=== PATIENT | female | born 1975 | race Caucasian/White ===

== ENCOUNTER 2018-09-01 20:52 | Emergency (ER) | payer OTHER ==
[~2018-09-01] VITALS: Ht 157.5 cm; Wt 59.9 kg
--- OUTSIDE RECORDS SUMMARY | 2018-09-01 20:55 | XMS REPORT ---
Author Author [facility] Address Unknown Phone Unavailable Care Team Providers Care Quality Control Representative Name Role Phone GABY TALBOT Unavailable Unavailable Problems This patient has no known problems. Allergies, Adverse Reactions, Alerts This patient has no known allergies or adverse reactions. Medications This patient has no known medications. Results Test Description Test Time Test Comments Text Results Atomic Results Result Comments TISSUE EXAM 2018-07-11 09:09:00 Surgical Pathology Report Case: [id number] Authorizing Provider: Bindu Talbot MD Collected: 07/09/2018 0416 Ord ering Location: [facility] Women's Services Received: 07/09/2018 0735 Pathologist: Yaya Briceno MD Specimen: Placenta PLACENTA, IUFD: UMBILICAL CORD - - TRIVASCULAR UMBILICAL CORD - NEGATIVE FOR ACUTE INFLAMMATION MEMBRANES - - NEGATIVE FOR ACUTE INFLAMMATION PLACENTAL DISC - - PLACENTAL WEIGHT: (MEAN EXPECTED WEIGHT - 236 GMS - SECOND TRIMESTER VILLI WITH DEGENERATIVE CHANGES CONSISTENT WITH IUFD AND IRREGULAR VILLOUS MORPHOLOGY - NO GESTATIONAL TROPHOBLASTIC DISEASE IDENTIFIEDNote: Placental weight reference: Diagnostic Pathology:Placenta. Gale Perales E. DePaepe, M. Section IV. 1-2. Elsevier. 2015. Signing Pathologist Direct Phone Line: [phone] signed by Yaya Briceno MD on 07/11/2018 at 9:09 [id number], para 0, 4, gestation 22 weeks on an male with birthweight of 320 gm. scores of 0 and 0. The procedure is not listed. Placenta The instrument, paperwork, container and cassettes all read [id number]. Received in a container of formalin labeled with the patient's name (Raoul), and medical record number. Specimen A: Received in formalin labeled as "placenta" is a 236 gm, 13.6 x 12.0 x 2.5 cm disrupted placenta with an attached segment of umbilical cord which measures 18.0 x 0.5 x 0.5 cm. There is a clip at one end. The vessels are small but appears to be a trivascular configuration. Also present are ordoñez-carrasco semitransparent membranes with a marginal insertion. The surface is ordoñez-carrasco and smooth. The vessels are small but appear to branch in the usual manner. Also present in the container is approximately 20 ml of blood clot. The maternal surface is disrupted with area of adherent blood clot. Sectioning reveals no areas of infarct. Code sections: A1, membrane roll; A2, section of umbilical cord; A3 and A4, sections of maternal surface; A5, section of surface. JF/pl HEMOGLOBIN AND HEMATOCRIT 2018-07-09 12:20:00 HEMOGLOBIN (BEAKER) (test yvjp=507) 7.7 GM/DL 12.0-15.5 HEMATOCRIT (BEAKER) (test wyqv=698) 22.2 % 36.0-46.0 CBC W/PLT COUNT & AUTO [id number] 07:52:00* Test Item Value Reference Range Comments WHITE BLOOD CELL COUNT (BEAKER) (test gcsq=270) 11.1 K/ L 4.0-10.0 RED BLOOD CELL COUNT (BEAKER) (test xerq=998) 2.32 M/ L 4.00-5.00 HEMOGLOBIN (BEAKER) (test agbj=689) 7.4 GM/DL 12.0-15.5 HEMATOCRIT (BEAKER) (test irbt=212) 21.4 % 36.0-46.0 MEAN CORPUSCULAR VOLUME (BEAKER) (test fega=205) 92.2 fL 82.0-99.0 MEAN CORPUSCULAR HEMOGLOBIN (BEAKER) (test amqc=597) 31.9 pg 27.0-33.0 MEAN CORPUSCULAR HEMOGLOBIN CONC (BEAKER) (test ooyu=558) 34.6 GM/DL 32.0-36.0 RED CELL DISTRIBUTION WIDTH (BEAKER) (test gvqa=184) 12.4 % 12.0-15.0 PLATELET COUNT (BEAKER) (test dwyo=525) 170 K/CU MM 150-430 MEAN PLATELET VOLUME (BEAKER) (test fadm=315) 9.9 fL 6.0-11.5 MPV-Approximately 20% positive bias due to method change. NUCLEATED RED BLOOD CELLS (BEAKER) (test kket=425) 0 /100 WBC 0-0 NEUTROPHILS RELATIVE PERCENT (BEAKER) (test xebh=543) 69 % LYMPHOCYTES RELATIVE PERCENT (BEAKER) (test famw=879) 20 % MONOCYTES RELATIVE PERCENT (BEAKER) (test cmck=891) 9 % EOSINOPHILS RELATIVE PERCENT (BEAKER) (test haos=066) 2 % BASOPHILS RELATIVE PERCENT (BEAKER) (test eifo=070) 0 % NEUTROPHILS ABSOLUTE COUNT (BEAKER) (test yzbm=837) 7.61 K/ L 1.80-8.00 LYMPHOCYTES ABSOLUTE COUNT (BEAKER) (test rpgk=330) 2.16 K/ L 1.48-4.50 MONOCYTES ABSOLUTE COUNT (BEAKER) (test ohdm=550) 1.01 K/ L 0.00-1.30 EOSINOPHILS ABSOLUTE COUNT (BEAKER) (test okff=277) 0.24 K/ L 0.00-0.50 BASOPHILS ABSOLUTE COUNT (BEAKER) (test jmxr=697) 0.01 K/ L 0.00-0.20 IMMATURE GRANULOCYTES-RELATIVE PERCENT (BEAKER) (test cxjd=8902) 1 % 0-0 TYPE AND SCREEN, [id number] 21:38:00* Test Item Value Reference Range Comments ABO/RH AUTOMATED (BEAKER) (test hlzs=6693) B positive AB SCREEN (BEAKER) (test glzu=099) Negative HEPATITIS B SURFACE [id number] 21:02:00* Test Item Value Reference Range Comments HEPATITIS B SURFACE ANTIGEN (2) (BEAKER) (test uhpc=3458) Nonreactive Nonreactive CBC W/PLT COUNT & AUTO [id number] 20:48:00* Test Item Value Reference Range Comments WHITE BLOOD CELL COUNT (BEAKER) (test bfwr=374) 10.0 K/ L 4.0-10.0 RED BLOOD CELL COUNT (BEAKER) (test uawk=045) 2.95 M/ L 4.00-5.00 HEMOGLOBIN (BEAKER) (test wqnr=587) 9.4 GM/DL 12.0-15.5 Discordant result compared to previous result: clinical correlation required. HEMATOCRIT (BEAKER) (test akiv=632) 27.3 % 36.0-46.0 MEAN CORPUSCULAR VOLUME (BEAKER) (test ryuo=196) 92.5 fL 82.0-99.0 Discordant result compared to previous result: clinical correlation required. MEAN CORPUSCULAR HEMOGLOBIN (BEAKER) (test gwtm=273) 31.9 pg 27.0-33.0 MEAN CORPUSCULAR HEMOGLOBIN CONC (BEAKER) (test mdwz=097) 34.4 GM/DL 32.0-36.0 RED CELL DISTRIBUTION WIDTH (BEAKER) (test snei=376) 12.6 % 12.0-15.0 PLATELET COUNT (BEAKER) (test eyss=417) 214 K/CU MM 150-430 MEAN PLATELET VOLUME (BEAKER) (test bryb=938) 10.2 fL 6.0-11.5 MPV-Approximately 20% positive bias due to method change. NUCLEATED RED BLOOD CELLS (BEAKER) (test lxmj=178) 0 /100 WBC 0-0 NEUTROPHILS RELATIVE PERCENT (BEAKER) (test btcx=753) 66 % LYMPHOCYTES RELATIVE PERCENT (BEAKER) (test hrtt=465) 22 % MONOCYTES RELATIVE PERCENT (BEAKER) (test iiiu=931) 8 % EOSINOPHILS RELATIVE PERCENT (BEAKER) (test xdmb=553) 3 % BASOPHILS RELATIVE PERCENT (BEAKER) (test cugn=902) 0 % NEUTROPHILS ABSOLUTE COUNT (BEAKER) (test hdwu=722) 6.63 K/ L 1.80-8.00 LYMPHOCYTES ABSOLUTE COUNT (BEAKER) (test amoj=848) 2.19 K/ L 1.48-4.50 MONOCYTES ABSOLUTE COUNT (BEAKER) (test zxsd=514) 0.83 K/ L 0.00-1.30 EOSINOPHILS ABSOLUTE COUNT (BEAKER) (test tkwr=660) 0.28 K/ L 0.00-0.50 BASOPHILS ABSOLUTE COUNT (BEAKER) (test fhzp=418) 0.04 K/ L 0.00-0.20 IMMATURE GRANULOCYTES-RELATIVE PERCENT (BEAKER) (test zstg=1496) 0 % 0-0 CBC W/PLT COUNT & AUTO [id number] 20:23:00* Test Item Value Reference Range Comments WHITE BLOOD CELL COUNT (BEAKER) (test qely=525) 5.1 K/ L 4.0-10.0 RED BLOOD CELL COUNT (BEAKER) (test qzgc=770) 1.50 M/ L 4.00-5.00 HEMOGLOBIN (BEAKER) (test auab=928) 4.8 GM/DL 12.0-15.5 HEMATOCRIT (BEAKER) (test ycbr=412) 14.5 % 36.0-46.0 MEAN CORPUSCULAR VOLUME (BEAKER) (test vrji=595) 96.7 fL 82.0-99.0 MEAN CORPUSCULAR HEMOGLOBIN (BEAKER) (test adjf=391) 32.0 pg 27.0-33.0 MEAN CORPUSCULAR HEMOGLOBIN CONC (BEAKER) (test robb=353) 33.1 GM/DL 32.0-36.0 RED CELL DISTRIBUTION WIDTH (BEAKER) (test bjsg=777) 12.6 % 12.0-15.0 PLATELET COUNT (BEAKER) (test jmeb=569) 110 K/CU MM 150-430 MEAN PLATELET VOLUME (BEAKER) (test qufi=483) 10.1 fL 6.0-11.5 NUCLEATED RED BLOOD CELLS (BEAKER) (test xiks=428) 0 /100 WBC 0-0 NEUTROPHILS RELATIVE PERCENT (BEAKER) (test vcwq=378) 67 % LYMPHOCYTES RELATIVE PERCENT (BEAKER) (test osum=118) 21 % MONOCYTES RELATIVE PERCENT (BEAKER) (test xueq=869) 8 % EOSINOPHILS RELATIVE PERCENT (BEAKER) (test gjzn=888) 3 % BASOPHILS RELATIVE PERCENT (BEAKER) (test lwgl=898) 0 % NEUTROPHILS ABSOLUTE COUNT (BEAKER) (test yhuy=735) 3.45 K/ L 1.80-8.00 LYMPHOCYTES ABSOLUTE COUNT (BEAKER) (test kdbp=563) 1.08 K/ L 1.48-4.50 MONOCYTES ABSOLUTE COUNT (BEAKER) (test onug=716) 0.43 K/ L 0.00-1.30 EOSINOPHILS ABSOLUTE COUNT (BEAKER) (test xsuf=425) 0.14 K/ L 0.00-0.50 BASOPHILS ABSOLUTE COUNT (BEAKER) (test onye=143) 0.01 K/ L 0.00-0.20 IMMATURE GRANULOCYTES-RELATIVE PERCENT (BEAKER) (test ypag=6556) 0 % 0-0 HEPATITIS B SURFACE [id number] 06:40:00* Test Item Value Reference Range Comments HEPATITIS B SURFACE ANTIGEN (2) (BEAKER) (test uamv=9512) Nonreactive Nonreactive CBC W/PLT COUNT & AUTO [id number] 05:54:00* Test Item Value Reference Range Comments WHITE BLOOD CELL COUNT (BEAKER) (test pdly=343) 8.0 K/ L 4.0-10.0 RED BLOOD CELL COUNT (BEAKER) (test ivti=888) 2.90 M/ L 4.00-5.00 HEMOGLOBIN (BEAKER) (test yars=337) 9.3 GM/DL 12.0-15.5 HEMATOCRIT (BEAKER) (test ygsl=494) 26.7 % 36.0-46.0 MEAN CORPUSCULAR VOLUME (BEAKER) (test xwyc=259) 92.1 fL 82.0-99.0 MEAN CORPUSCULAR HEMOGLOBIN (BEAKER) (test dkhi=564) 32.1 pg 27.0-33.0 MEAN CORPUSCULAR HEMOGLOBIN CONC (BEAKER) (test wozz=722) 34.8 GM/DL 32.0-36.0 RED CELL DISTRIBUTION WIDTH (BEAKER) (test mdhb=538) 12.7 % 12.0-15.0 PLATELET COUNT (BEAKER) (test bblq=443) 208 K/CU MM 150-430 MEAN PLATELET VOLUME (BEAKER) (test lqtu=977) 9.7 fL 6.0-11.5 MPV-Approximately 20% positive bias due to method change. NUCLEATED RED BLOOD CELLS (BEAKER) (test ycwv=385) 0 /100 WBC 0-0 NEUTROPHILS RELATIVE PERCENT (BEAKER) (test cned=768) 61 % LYMPHOCYTES RELATIVE PERCENT (BEAKER) (test pplu=532) 23 % MONOCYTES RELATIVE PERCENT (BEAKER) (test mljo=834) 10 % EOSINOPHILS RELATIVE PERCENT (BEAKER) (test bvfe=818) 5 % BASOPHILS RELATIVE PERCENT (BEAKER) (test qkcq=814) 1 % NEUTROPHILS ABSOLUTE COUNT (BEAKER) (test dyzp=638) 4.88 K/ L 1.80-8.00 LYMPHOCYTES ABSOLUTE COUNT (BEAKER) (test krri=484) 1.87 K/ L 1.48-4.50 MONOCYTES ABSOLUTE COUNT (BEAKER) (test sjbd=969) 0.77 K/ L 0.00-1.30 EOSINOPHILS ABSOLUTE COUNT (BEAKER) (test hsvq=321) 0.42 K/ L 0.00-0.50 BASOPHILS ABSOLUTE COUNT (BEAKER) (test avmz=389) 0.04 K/ L 0.00-0.20 IMMATURE GRANULOCYTES-RELATIVE PERCENT (SAMAKER) (test yqyn=2840) 0 % 0-0
--- OUTSIDE RECORDS SUMMARY | 2018-09-01 20:55 | XMS REPORT | Clinical Summary ---
Author Author RINA [facility] Address Unknown Phone Unavailable Care Team Providers [facility] [employer] Professor Name Role Phone PCP Unavailable Allergies No Known Allergies Medications End Date Status Medication Sig Dispensed Refills Start Date 09/07/2018 Active docusate sodium (COLACE) Take 1 60 capsule 1 100 MG capsule capsule (100 9 mg total) by mouth 2 (two) times daily as needed for Constipation for up to 60 days. 09/07/2018 Active ibuprofen (ADVIL,MOTRIN) Take 1 tablet 40 tablet 1 800 MG tablet (800 mg 9 total) by mouth every 6 (six) hours as needed for up to 60 days. Active prenat.vits,krzysztof,min-iron- Take by 0 folic ( VITAMIN) mouth. Tab Active sertraline (ZOLOFT) 50 MG Take 2 30 tablet 11 tablet tablets (100 9 mg total) by mouth daily. 09/15/2018 Active ALPRAZolam (XANAX) 0.25 Take 1 tablet 15 tablet 0 201 MG tablet (0.25 mg 9 total) by mouth every night as needed for Anxiety for up to 30 days. Max Daily Amount: 0.25 mg 07/06/2018 Discontinued prenat.vits,krzysztof,min-iron- Take by 0 folic ( VITAMIN) mouth. Tab 06/26/2018 Discontinued FOLIC ACID ORAL Take by 0 mouth. 06/19/2018 Discontinued ALPRAZolam (XANAX) 1 MG Take 1 mg by 0 tablet mouth 2 (two) times daily. 07/06/2018 Discontinued aspirin 81 MG EC tablet Take 81 mg by 0 mouth daily. 07/04/2018 Discontinued ALPRAZolam (XANAX) 1 MG Take 1 tablet 30 tablet 1 tablet (1 mg total) 9 by mouth 2 (two) times daily as needed for Sleep or Anxiety for up to 60 days. Max Daily Amount: 2 mg 06/26/2018 Discontinued folic acid (FOLVITE) 1 MG Take 1 tablet 30 tablet 11 tablet (1 mg total) 9 by mouth daily. 07/06/2018 Discontinued CITRANATAL DHA, ALGAL Take 1 30 each 11 OIL, 27 mg iron-1 mg -50 Package by 9 mg-250 mg Cmpk mouth daily. 07/06/2018 Discontinued folic acid (FOLVITE) 1 MG Take 1 tablet 30 tablet 11 tablet (1 mg total) 9 by mouth daily. 07/06/2018 Discontinued ALPRAZolam (XANAX) 1 MG Take 1 tablet 30 tablet 1 tablet (1 mg total) 9 by mouth 2 (two) times daily as needed for Sleep or Anxiety for up to 60 days. Max Daily Amount: 2 mg 07/08/2018 Discontinued diazePAM (VALIUM) 2 MG Take 1 tablet 30 tablet 0 tablet (2 mg total) 9 by mouth every 8 (eight) hours as needed for Anxiety or Sleep for up to 30 days. Max Daily Amount: 6 mg 08/08/2018 HYDROcodone-acetaminophen Take 1 tablet 30 tablet 0 (NORCO 5-325) 5-325 mg by mouth 9 per tablet every 4 (four) hours as needed for up to 30 days. Max Daily Amount: 6 tablets 08/08/2018 zolpidem (AMBIEN) 5 MG Take 1 tablet 30 tablet 0 tablet (5 mg total) 9 by mouth every night as needed for Insomnia for up to 30 days. Max Daily Amount: 5 mg 08/16/2018 Discontinued sertraline (ZOLOFT) 50 MG Take 1 tablet 30 tablet 11 tablet (50 mg total) 9 by mouth daily. Active Problems Patient Care Coordination Note Having a boy named Real No known active problems Resolved Problems Problem Noted Date Resolved Date IUFD at 20 weeks or more of gestation 07/04/2018 08/16/2018 demise before 22 weeks with retention of fetus 07/04/2018 08/16/2018 Anemia complicating in second trimester 06/26/2018 07/16/2018 Supervision of high risk in second trimester 06/20/2018 07/16/2018 AMA (advanced maternal age) multigravida 35+, second trimester 06/20/2018 07/16/2018 Mental disorder affecting in second trimester 06/20/2018 07/16/2018 Overview: Anxiety/panic attacks Abnormal screening blood test for Down syndrome in first trimester 06/20/2018 07/16/2018 Overview: +NIPT for Trisomy 21, pt declined amniocentesis, complete AV canal defect, Severe hydrops, [facility] Personal history of seizure disorder 06/20/2018 07/16/2018 Encounters Care Team Description Date Type Specialty Mireya Keller RN ROR 08/21/2018 Telephone Obstetrics and Gynecology Kia Nevarez, unspecified type (Primary Dx); care following vaginal delivery 08/16/2018 Obstetrics and Gynecology 08/16/2018 Travel Mireya Keller RN Postpartum Follow-up 07/19/2018 Telephone Obstetrics and Gynecology Mireya Keller RN Results 07/17/2018 Telephone Obstetrics and Gynecology Bindu Talbot MD care and examination (Primary Dx) 07/16/2018 Obstetrics and Gynecology Wil Gaffney MD 07/08/2018 Anesthesia Obstetrics Event Bindu Talbot MD 07/08/2018 Hospital Obstetrics - Encounter 07/09/2018 07/07/2018 Travel Bindu Talbot MD 07/05/2018 Hospital Obstetrics - Encounter 07/06/2018 Bindu Talbot MD 07/05/2018 Hospital Obstetrics and Gynecology Encounter Bindu Talbot MD GA: 21w2d 07/04/2018 Routine Obstetrics and Gynecology 07/04/2018 Mireya Olvera RN Incoming Call 07/02/2018 Telephone Obstetrics and Gynecology Mireya Keller RN Results 06/26/2018 Telephone Obstetrics and Gynecology Bindu Talbot MD GA: 20w0d 06/25/2018 Routine Obstetrics and Gynecology 06/25/2018 Travel Bindu Talbot MD GA: 19w1d 06/19/2018 Initial Obstetrics and Gynecology after 08/31/2017 Family History Medical History Relation Name Comments Hypertension Mother Osteoporosis Mother Relation Name Status Comments Mother Social History Date Tobacco Use Types Packs/Day Years Used Current Every Day Smoker 0.5 18 Smokeless Tobacco: Never Used Alcohol Use Drinks/Week oz/Week Comments No Alcohol Habits Answer Date Recorded How often do you have a drink containing alcohol? Never 06/19/2018 How many drinks containing alcohol do you have on Not asked a typical day when you are drinking? How often do you have six or more drinks on one Not asked occasion? Sex Assigned at Date Recorded Not on file Industry Job Start Date Occupation Not on file Not on file Not on file Travel End Travel History Travel Start No recent travel history available. Last Filed Vital Signs Time Taken Vital Sign Reading 08/16/2018 11:23 AM CDT Blood Pressure 114/60 07/09/2018 7:31 AM CDT Pulse 77 07/09/2018 7:31 AM CDT Temperature 36.9 C (98.4 F) 07/09/2018 7:31 AM CDT Respiratory Rate 18 - Oxygen Saturation - - Inhaled Oxygen - Concentration 08/16/2018 11:23 AM CDT Weight 62.3 kg (137 lb 6.4 oz) 08/16/2018 11:23 AM CDT Height 160 cm (5' 3") 08/16/2018 11:23 AM CDT Body Mass Index 24.34 Plan of Treatment Not on file Procedures Comments Procedure Name Priority Date/Time Associated Diagnosis CBC W/PLT COUNT & AUTO Routine 08/16/2018 Fatigue, unspecified type DIFFERENTIAL 11:48 AM CDT CBC W/PLT COUNT & AUTO Routine 07/16/2018 care and DIFFERENTIAL 4:26 PM CDT examination TRANSFUSION SERVICE 07/09/2018 REPORT - SCAN 5:52 PM CDT HEMOGLOBIN AND HEMATOCRIT Routine 07/09/2018 12:06 PM CDT CBC W/PLT COUNT & AUTO Routine 07/09/2018 DIFFERENTIAL 7:38 AM CDT CBC W/PLT COUNT & AUTO Routine 07/09/2018 DIFFERENTIAL 7:38 AM CDT TISSUE EXAM AP Routine 07/09/2018 4:16 AM CDT VT AN EPIDURAL CATH - NO Routine 07/08/2018 CHARGE 9:34 PM CDT CBC W/PLT COUNT & AUTO STAT 07/08/2018 DIFFERENTIAL 8:40 PM CDT CBC W/PLT COUNT & AUTO STAT 07/08/2018 DIFFERENTIAL 8:40 PM CDT CBC W/PLT COUNT & AUTO STAT 07/08/2018 DIFFERENTIAL 8:07 PM CDT TYPE AND SCREEN, STAT 07/08/2018 AUTOMATED 8:07 PM CDT HEPATITIS B SURFACE STAT 07/08/2018 ANTIGEN 8:07 PM CDT CBC W/PLT COUNT & AUTO STAT 07/08/2018 DIFFERENTIAL 8:07 PM CDT TRANSFUSION SERVICE 07/06/2018 REPORT - SCAN 5:57 PM CDT CBC W/PLT COUNT & AUTO Routine 07/05/2018 DIFFERENTIAL 5:46 AM CDT TYPE AND SCREEN, STAT 07/05/2018 AUTOMATED 5:46 AM CDT HEPATITIS B SURFACE Routine 07/05/2018 ANTIGEN 5:46 AM CDT CBC W/PLT COUNT & AUTO Routine 07/05/2018 DIFFERENTIAL 5:46 AM CDT US OB LIMITED 1 + FETUSES Routine 07/04/2018 demise before 22 3:49 PM CDT weeks with retention of fetus ABORH, MANUAL Routine 06/25/2018 Supervision of high risk 2:59 PM CDT in second trimester ANTIBODY SCREEN ([facility] Routine 06/25/2018 Supervision of high risk & [facility] ONLY) 2:59 PM CDT in second trimester TSH/FREE T4 IF INDICATED Routine 06/25/2018 Supervision of high risk 2:59 PM CDT in second trimester CBC W/PLT COUNT & AUTO Routine 06/25/2018 Supervision of high risk DIFFERENTIAL 2:59 PM CDT in second trimester URINE CULTURE, ROUTINE AP Routine 06/25/2018 Supervision of high risk 2:37 PM CDT in second trimester PAP IG CT-NG RFX HPV ASCU AP Routine 04/18/2018 URINE CULTURE, ROUTINE AP Routine 04/18/2018 HIV-1/O/2 Routine 04/18/2018 RUBELLA ANTIBODY, IGG Routine 04/18/2018 HEPATITIS B SURFACE Routine 04/18/2018 ANTIGEN VDRL, CSF Routine 04/18/2018 after 08/31/2017 Results * CBC with platelet count + automated diff (08/16/2018 11:48 AM CDT) Only the most recent of 3 results within the time period is included. WBC 7.6 3.4 - 10.8 x10E3/uL [facility] 1 RBC 3.84 3.77 - 5.28 x10E6/uL [facility] 1 Hemoglobin 12.3 11.1 - 15.9 g/dL [facility] 1 Hematocrit 37.1 34.0 - 46.6 % [facility] 1 MCV 97 79 - 97 fL [facility] 1 MCH 32.0 26.6 - 33.0 pg [facility] 1 MCHC 33.2 31.5 - 35.7 g/dL [facility] 1 RDW 13.2 12.3 - 15.4 % [facility] 1 Platelets 288 150 - 379 x10E3/uL [facility] 1 Comment: Effective August 20, 2018 the reference interval for Platelets will be changing to: 0 - 7 d140 - 396 x10E3/uL 8 - 30 d 139 - 531 x10E3/uL 31 d - 999 bzk519 - 450 x10E3/uL % Neutros 64 Not Estab. % [facility] 1 % Lymphs 29 Not Estab. % [facility] 1 % Monos 4 Not Estab. % [facility] 1 % Eos 3 Not Estab. % [facility] 1 % Baso 0 Not Estab. % [facility] 1 # Neutros 4.7 1.4 - 7.0 x10E3/uL [facility] 1 # Lymphs 2.2 0.7 - 3.1 x10E3/uL [facility] 1 # Monos 0.3 0.1 - 0.9 x10E3/uL [facility] 1 # Eos 0.3 0.0 - 0.4 x10E3/uL [facility] 1 Baso (Absolute) 0.0 0.0 - 0.2 x10E3/uL [facility] 1 % Immature Grans 0 Not Estab. % [facility] 1 # Immature Grans 0.0 0.0 - 0.1 x10E3/uL [facility] 1 Specimen Blood Narrative Performed At Performed at:01 - [facility] [address] [place], [id number] Armored Car Driver: Prateek Clark MD, Phone:[phone] Performing Organization Address City/State/Zipcode Phone Number [facility] * TRANSFUSION SERVICE REPORT - SCAN (07/09/2018 5:52 PM CDT) Only the most recent of 2 results within the time period is included. Narrative Performed At * Hemoglobin and hematocrit (07/09/2018 12:06 PM CDT) Hemoglobin 7.7 (L) 12.0 - 15.5 GM/DL [facility] Hematocrit 22.2 (L) 36.0 - 46.0 % [facility] Specimen Blood Performing Organization Address City/[facility]/Zipcode Phone Number [facility] [address] [place] [address] * CBC with platelet count + automated diff (07/09/2018 7:38 AM CDT) Only the most recent of 4 results within the time period is included. WBC 11.1 (H) 4.0 - 10.0 K/L [facility] RBC 2.32 (L) 4.00 - 5.00 M/L [facility] Hemoglobin 7.4 (L) 12.0 - 15.5 GM/DL [facility] Hematocrit 21.4 (L) 36.0 - 46.0 % [facility] MCV 92.2 82.0 - 99.0 fL [facility] MCH 31.9 27.0 - 33.0 pg [facility] MCHC 34.6 32.0 - 36.0 GM/DL [facility] RDW 12.4 12.0 - 15.0 % [facility] Platelets 170 150 - 430 K/CU MM [facility] MPV 9.9Comment: MPV-Approximately 6.0 - 11.5 fL [facility] 20% positive bias due to method change. nRBC 0 0 - 0 /100 WBC [facility] % Neutros 69 % [facility] % Lymphs 20 % [facility] % Monos 9 % [facility] % Eos 2 % [facility] % Baso 0 % [facility] # Neutros 7.61 1.80 - 8.00 K/L [facility] # Lymphs 2.16 1.48 - 4.50 K/L [facility] # Monos 1.01 0.00 - 1.30 K/L [facility] # Eos 0.24 0.00 - 0.50 K/L [facility] # Baso 0.01 0.00 - 0.20 K/L [facility] Immature 1 (H) 0 - 0 % [facility] Granulocytes-Relative Specimen Blood Performing Organization Address City/State/Zipcode Phone Number [facility] [address] [place], [place] [phone] * Tissue Exam: Placenta-Block Micro (07/09/2018 4:16 AM CDT) Case Report Surgical Pathology [facility] Report Case: [id number] Authorizing Provider:Bindu Talbot MDCollected: 07/09/2018 0416 [facility] Women's ServicesReceived: [id number] Pathologist: Yaya Briceno MD Specimen:Placenta DIAGNOSIS PLACENTA, IUFD: [facility] UMBILICAL CORD - - TRIVASCULAR UMBILICAL CORD - NEGATIVE FOR ACUTE INFLAMMATION MEMBRANES - - NEGATIVE FOR ACUTE INFLAMMATION PLACENTAL DISC - - PLACENTAL WEIGHT: (MEAN EXPECTED WEIGHT - 236 GMS - SECOND TRIMESTER VILLI WITH DEGENERATIVE CHANGES CONSISTENT WITH IUFD AND IRREGULAR VILLOUS MORPHOLOGY - NO GESTATIONAL TROPHOBLASTIC DISEASE IDENTIFIED Note: Placental weight reference: Diagnostic Pathology:Placenta. Gale Perales E. DePaepe, M. Section IV. 1-2. Elsevier. 2015. Signing Pathologist Direct Phone Line: [phone] CPT Code(s) 58829 [facility] CLINICAL HISTORY 43-year-old 4, para 0, [facility] 4, gestation 22 weeks on an infant male with birthweight of 320 gm. scores of 0 and 0. The procedure is not listed. SPECIMEN SOURCE Placenta [facility] GROSS DESCRIPTION The instrument, paperwork, [facility] container and cassettes all read [id number]. Received in a container of formalin labeled [...] maternal surface; A5, section of surface. JF/pl Specimen Tissue Performing Organization Address City/State/Zipcode Phone Number [facility] [address] [place], [place] [address] * ANESTHESIA EPIDURAL BLOCK (07/08/2018 9:34 PM CDT) Narrative Performed At Wil Gaffney MD 07/08/20189:36 PM Epidural Block Patient location during procedure: OB Start time: 07/08/2018 9:09 PM End time: 07/08/2018 9:19 PM Procedure Indication: primary anesthetic Staffing Anesthesiologist: Wil Gaffney MD Performed: personally Preanesthetic Checklist Completed: patient identified, pre-op evaluation, timeout performed, IV checked, risks and benefits discussed, monitors and equipment checked, anesthesia consent given, prep site dry prior to draping and maximum sterile barriers were used: cap, mask, sterile gown, sterile gloves, and large sterile sheet Prep Prep: Betadine Procedures: sterile gloves, surgical mask, surgical hat, sterile technique and prep and sterile drape applied Epidural Patient position: sitting Patient monitoring: HR, SpO2 and BP Approach: midline landmark technique and landmark techniqueNo pictures available Location: lumbar Level:3-4 Injection technique: OSORIO air Epidural Needle Needle type: Tuohy Needle gauge: 17 G Needle length: 9 cm Insertion Depth: 4 cm Catheter Type: Epidural Catheter type: end hole (Arrow) Catheter size: 19 G Depth in Epidural Space: 4 cm Assessment Sensory Region: lumbar Sensory level: 11 Test dose result: negative Amount: 3 mL, lidocaine 1.5% with epinephrine 1:200,000injection not painful, no injection resistance, no paresthesia, no intravascular injection and no intrathecal medication injection patient tolerated the procedure well and patient had no immediate complications Additional Notes One attempt. L3-4. OSORIO to air at 4cm with catheter secured at 8cm. Procedure Note Wil Gaffney MD - 07/08/2018 9:34 PM CDT Epidural Block Patient location during procedure: OB Start time: 07/08/2018 9:09 PM End time: 07/08/2018 9:19 PM Procedure Indication: primary anesthetic Staffing Anesthesiologist: Wil Gaffney MD Performed: personally Preanesthetic Checklist Completed: patient identified, pre-op evaluation, timeout performed, IV checked, risks and benefits discussed, monitors and equipment checked, anesthesia consent given, prep site dry prior to draping and maximum sterile barriers were used: cap, mask, sterile gown, sterile gloves, and large sterile sheet Prep Prep: Betadine Procedures: sterile gloves, surgical mask, surgical hat, sterile technique and prep and sterile drape applied Epidural Patient position: sitting Patient monitoring: HR, SpO2 and BP Approach: midline landmark technique and landmark techniqueNo pictures available Location: lumbar Level: 3-4 Injection technique: OSORIO air Epidural Needle Needle type: Tuohy Needle gauge: 17 G Needle length: 9 cm Insertion Depth: 4 cm Catheter Type: Epidural Catheter type: end hole (Arrow) Catheter size: 19 G Depth in Epidural Space: 4 cm Assessment Sensory Region: lumbar Sensory level: 11 Test dose result: negative Amount: 3 mL, lidocaine 1.5% with epinephrine 1:200,000injection not painful, no injection resistance, no paresthesia, no intravascular injection and no intrathecal medication injection patient tolerated the procedure well and patient had no immediate complications Additional Notes One attempt. L3-4. OSORIO to air at 4cm with catheter secured at 8cm. * Type and screen, automated (07/08/2018 8:07 PM CDT) Only the most recent of 2 results within the time period is included. ABO/RH AUTOMATED (BEAKER) B positive [facility] Ab Scrn Negative [facility] Specimen Blood Performing Organization Address City/[facility]/Zipcode Phone Number [facility] [address] [place] [address] HOSPITAL * Hepatitis B surface antigen (07/08/2018 8:07 PM CDT) Only the most recent of 3 results within the time period is included. hepatitis B Surface Ag NON-REACTIVE Nonreactive [facility] Specimen Blood Performing Organization Address City/[facility] Phone Number [facility] [address] [place] [address] * Ultrasound OB limited 1 + fetuses (07/04/2018 3:49 PM CDT) Narrative Performed At * Antibody Screen ([facility] Only) (06/25/2018 2:59 PM CDT) Antibody Screen Negative Negative [facility] 1 Specimen Narrative Performed At Performed at: - [facility] [address] [place], [id number] Armored Car Driver: Prateek Clark MD, Phone:[phone] Performing Organization Address City/[facility] Cent[facility]ode Phone Number [facility] 1 * loni FLORENTINO (06/25/2018 2:59 PM CDT) ABO Grouping B [facility] 1 Rh Factor Positive [facility] 1 Comment: Please note: Prior records for this patient's ABO / Rh type are not available for additional verification. Specimen Blood Narrative Performed At Performed at: - [facility] [address] [place], [id number] Armored Car Driver: Prateek Clark MD, Phone:[phone] Performing Organization Address City/[facility]/Zipcode Phone Number [facility] 1 * TSH/T4 if indicated (06/25/2018 2:59 PM CDT) TSH 1.230 0.450 - 4.50 uIU/mL [facility] 1 Specimen Blood Narrative Performed At Performed at: - [facility] [address] [place], [id number] Armored Car Driver: Prateek Clark MD, Phone:[phone] Performing Organization Address [facility] Phone Number [facility] 1 * URINE CULTURE, ROUTINE ([facility] Only) (06/25/2018 2:37 PM CDT) Only the most recent of 2 results within the time period is included. Urine Culture, Routine Final report [facility] 1 Result 1 No growth [facility] 1 Specimen Urine Narrative Performed At Performed at: - [facility] [address] [place], [id number] Armored Car Driver: Prateek Clark MD, Phone:[phone] Performing Organization Address [facility] Phone Number [facility] 1 * PAP IG CT-NG RFX HPV ASCU (04/18/2018) Pap Negative for intraephithelial [facility] lesion or malignancy Chlamydia, Nuc. Acid Amp negative [facility] Gonococcus, Nuc. Acid Amp negative [facility] Performing Organization Address [facility] Phone Number [facility] * Rubella antibody, IgG (04/18/2018) Rubella Antibodies, IgG immune [facility] Specimen Blood Performing Organization Address [facility] Phone Number [facility] * VDRL, CSF (04/18/2018) VDRL, CSF Nonreactive Nonreactive [facility] Specimen Cerebrospinal Fluid Performing Organization Address [facility] Phone Number [facility] * HIV-1/O/2 (04/18/2018) HIV 1/O/2 Abs, Qual negative [facility] Specimen Blood Performing Organization Address [facility] Phone Number [facility] after 08/31/2017 Insurance Payer Benefit Subscriber ID Type Phone Address Plan / Group MEDICAID - MEDICAID MGD MEDICAID xxxxxxxxx Medicaid CARE COMM Contracted HEALTH CHOICE Advance Directives For more information, please contact: [address] [address] Date Inactivated Comments Code Status Date Activated 07/09/2018 5:01 PM Full Code 07/08/2018 6:44 PM This code status was determined by: Patient 07/06/2018 11:54 AM Full Code 07/05/2018 5:39 AM This code status was determined by: Patient
[2018-09-01] MEDS ORDERED: ONDANSETRON HCL 4 MG ORAL DISINTEGRATING TAB PO ONE (21:15)
[2018-09-01] MEDS ORDERED: HYDROMORPHONE 2MG/ML 2 MG/ML ML IM ONE (21:15)
== END 2018-09-01 22:33 | disposition home or self-care (01) ==
LOC: ER 20:52
DX: M54.42 Lumbago with sciatica, left side (principal); S39.012A Strain of muscle, fascia and tendon of lower back, initial encounter; G40.909 Epilepsy, unspecified, not intractable, without status epilepticus
CPT/HCPCS: 99282; J1170; Q0162